=== PATIENT | male | born 1970 | race Caucasian/White ===

== ENCOUNTER 2016-12-24 00:24 | Emergency (ER) | payer OTHER ==
[~2016-12-24] VITALS: Ht 182.9 cm; Wt 93.6 kg
[~2016-12-24 00:24] MED LIST: AMITRIPTYLINE H25 MG PO; EFFEXOR XR75 MG PO; FENOFIBRATE160 M1 PO; KEFLEX500 MG PO; METOPROLOL SUCC25 MG PO; METOPROLOL TART50 MG PO; MOTRIN600 MG PO; NITROQUICK0.4 MG PO; PERCOCET 5/31 TABLET PO; PRAVASTATIN SOD20 MG PO; PROTONIX40 MG PO; VERAPAMIL HCL240 MG PO
[2016-12-24 03:03] LABS: EOSINOPHIL (%) 0.6 % (0-5); EOSINOPHIL COUNT 0.1 K/uL (0-0.3); HEMATOCRIT 44.3 % (38.0-50.0); IMMATURE GRANULOCYTE (%) 0.7 % (0.0-0.7); IMMATURE GRANULOCYTE COUNT 0.1 K/uL; INSTRUMENT ABS NEUTROPHIL CT 11.8 K/uL; MCH 28.1 PG (29.0-34.0); MCHC 32.3 G/DL (30.0-36.0); MCV 87.2 FL (86-99); MONOCYTE (%) 8.9 % (3-12); MONOCYTE COUNT 1.3 K/uL (0-0.8); NEUTROPHIL (%) 82.7 % (45-76); NEUTROPHIL COUNT 11.8 K/uL (1.8-6.4); PLATELET COUNT 231 K/uL (156-360); RBC DIS.WIDTH-CV 12.5 % (11.8-14.6); RBC DIS.WIDTH-SD 40.3 % (39-53); RED BLOOD COUNT 5.08 M/uL (4.00-5.50); WHITE BLOOD COUNT 14.3 K/uL (4.1-10.2)
[2016-12-24 03:16] LABS: CHLORIDE 106 mEq/L (99-109); POTASSIUM 3.7 mEq/L (3.7-5.4); SODIUM 140 mEq/L (136-147)
[2016-12-24 03:17] LABS: GLUCOSE 111 mg/dL (70-99)
[2016-12-24 03:19] LABS: ANION GAP 10 MEQ/L (2-14)
[2016-12-24 03:21] LABS: GFR ESTIMATE (CALCULATED) > 59 mL/min/
[2016-12-24 03:22] LABS: UREA NITROGEN (BUN) 30 mg/dL (9-23)
[2016-12-24] MEDS ORDERED: KEFLEX500 MG PO (04:22)
[2016-12-24 04:42] VITALS: BP 118/72
== END 2016-12-24 04:42 | disposition home or self-care (01) ==
LOC: EME 00:24
PROVIDERS: Emergency Medicine
PROC: 0H9DXZX Drainage of Right Lower Arm Skin, External Approach, Diagnostic (ICD-10-PCS; principal; 2016-12-24)
DX: M70.21 Olecranon bursitis, right elbow (principal); E78.5 Hyperlipidemia, unspecified; Z87.891 Personal history of nicotine dependence; Z95.1 Presence of aortocoronary bypass graft
CPT/HCPCS: 73080; 80048; 85025; 87040; 87070; 87075; 87077; 87147; 87186; 87205; 89051; 89060; 99281; 99284

== ENCOUNTER 2016-12-27 20:29 | Inpatient (IN) | payer OTHER ==
[~2016-12-27] VITALS: Ht 182.9 cm; Wt 93.6 kg
[2016-12-27 21:57] LABS: HEMATOCRIT 38.8 % (38.0-50.0); MCH 28.4 PG (29.0-34.0); MCV 86.2 FL (86-99); MEAN PLAT.VOLUME 10.7 uM^3 (9.0-12.4); PLATELET COUNT 264 K/uL (156-360); RBC DIS.WIDTH-CV 12.3 % (11.8-14.6); WHITE BLOOD COUNT 12.6 K/uL (4.1-10.2)
[2016-12-27 22:30] LABS: ADD MIUA? YES; BILIRUBIN NEGATIVE; BLOOD MODERATE; COLOR YELLOW ((YELLOW)); GLUCOSE (STRIP) 50; KETONES NEGATIVE; LEUKOCYTES NEGATIVE; NITRITE NEGATIVE; PROTEIN (STRIP) 30; SPECIFIC GRAVITY 1.018 (1.000-1.030)
[2016-12-27 22:34] LABS: CHLORIDE 104 mEq/L (99-109); POTASSIUM 4.1 mEq/L (3.7-5.4); SODIUM 139 mEq/L (136-147)
[2016-12-27 22:36] LABS: GLUCOSE 108 mg/dL (70-99)
[2016-12-27 22:38] LABS: ANION GAP 14 MEQ/L (2-14); TOTAL BILIRUBIN 0.5 mg/dL (0.0-1.0)
[2016-12-27 22:40] LABS: ALKALINE PHOSPHATASE 71 IU/L (3-129); GFR ESTIMATE (CALCULATED) 38 mL/min/
[2016-12-27 22:41] LABS: UREA NITROGEN (BUN) 25 mg/dL (9-23)
[2016-12-27 22:43] LABS: LIPASE 43 U/L (1.0-51.0)
[2016-12-27 22:56] LABS: BACTERIA 1+ /HPF; CASTS NONE SEEN /LPF; CRYSTALS NONE SEEN; EPITHELIAL CELLS RARE /HPF; MUCUS NONE SEEN /LPF; RED BLOOD CELLS 15-20 /HPF (0-5); UCUL ADDED? NO; WHITE BLOOD CELLS RARE /HPF (0-5)
[2016-12-27] MEDS ORDERED: NITROSTAT0.4 MG SL (23:18)
[2016-12-27] MEDS ORDERED: BACTRIM,SEPT1 TABLET PO (23:18)
[2016-12-27] MEDS ORDERED: PROPRANOLOL HCL60 M1 PO (23:18)
[2016-12-27] MEDS ORDERED: ALEVE220 MG PO (23:19)
[2016-12-28 06:15] LABS: MCH 29.3 PG (29.0-34.0); MCHC 33.3 G/DL (30.0-36.0); MCV 87.8 FL (86-99); MEAN PLAT.VOLUME 11.4 uM^3 (9.0-12.4); PLATELET COUNT 235 K/uL (156-360); RBC DIS.WIDTH-CV 12.6 % (11.8-14.6); RBC DIS.WIDTH-SD 40.6 % (39-53); RED BLOOD COUNT 4.44 M/uL (4.00-5.50); WHITE BLOOD COUNT 13.2 K/uL (4.1-10.2)
[2016-12-28 06:40] LABS: ALKALINE PHOSPHATASE 61 IU/L (3-129); ANION GAP 12 MEQ/L (2-14); CHLORIDE 108 MEQ/L (99-109); GFR ESTIMATE (CALCULATED) 46 mL/min/; GLUCOSE 95 mg/dL (70-99); SAMPLE HEMOLYSIS CHECK 0; SAMPLE ICTERIC CHECK 0; SAMPLE LIPEMIA CHECK 0; SODIUM 139 MEQ/L (136-147); TOTAL BILIRUBIN 0.6 MG/DL (0.0-1.0); UREA NITROGEN (BUN) 21 mg/dL (9-23)
[2016-12-28 09:18] VITALS: BP 121/78
[2016-12-28] MEDS ORDERED: TAMSULOSIN HCL0.4 MG PO (10:00)
[2016-12-28] MEDS ORDERED: ULTRAM50 MG PO (10:00)
== END 2016-12-28 13:04 | disposition home or self-care (01) | DRG 694 ==
LOC: EME 20:29 → EDOF 23:34 → 5EAST 12-28 01:09
PROVIDERS: Physician Assistant; Physician Assistant Medical
DX: N13.2 Hydronephrosis with renal and ureteral calculous obstruction (principal); N17.9 Acute kidney failure, unspecified; N18.2 Chronic kidney disease, stage 2 (mild); M71.121 Other infective bursitis, right elbow; M43.17 Spondylolisthesis, lumbosacral region; I12.9 Hypertensive chronic kidney disease with stage 1 through stage 4 chronic kidney disease, or unspecified chronic kidney disease; E78.5 Hyperlipidemia, unspecified; L03.113 Cellulitis of right upper limb; R79.89 Other specified abnormal findings of blood chemistry; K75.81 Nonalcoholic steatohepatitis (NASH); I25.119 Atherosclerotic heart disease of native coronary artery with unspecified angina pectoris; Z95.1 Presence of aortocoronary bypass graft; Z87.891 Personal history of nicotine dependence; Z87.442 Personal history of urinary calculi
CPT/HCPCS: 74176; 80053; 81003; 83690; 85027; J0696; J1170; J1885; J7030; J7050